=== PATIENT | male | born 1960 | race Caucasian/White ===

== ENCOUNTER 2025-09-05 15:39 | Outpatient (CLI) | payer BC, SELFPAY ==
--- NOTE | ~2025-09-05 | XR_ITS ---
[id number] Indication: Cervical spine pain Comparison: None Findings: The vertebral heights are intact. No fracture or subluxation. Moderate loss of disc height C4-5 C5-6 and severe loss of disc height at C6-7. Soft tissues unremarkable Impression: No acute abnormality. Reviewed, dictated and finalized at location P. Impression: No acute abnormality.
== END 2025-09-05 15:40 | disposition home or self-care (01) ==
PROVIDERS: PCP Chiropractor; Visit Provider Chiropractor
DX: M54.2 Cervicalgia (principal)
CPT/HCPCS: 72040